=== PATIENT | female | born 1990 | race African-American/Black ===

== ENCOUNTER 2017-06-30 01:42 | Inpatient (IN) | payer OTHER ==
[2017-06-30] MEDS ORDERED: Metoclopramide HCl 10 MG/2 ML VIAL ONE (02:25)
[2017-06-30] MEDS ORDERED: Insulin Regular 100 units/100 ml in NS IVPB SCH (03:00)
[2017-06-30 03:02] LABS: Base Excess-Venous -2.7 mmol/L (-30.0-30.0); Bicarbonate (HCO3v) 21.1 mmol/L (1.0-85.0); CO2 Tension (PvCO2) 32.1 mmHg (41.0-51.0); Calcium, Ionized 0.98 mmol/L (1.12-1.32); Hemoglobin - Calc 10.6 g/dL (12.0-18.0); O2 Tension (PvO2) 57.1 mmHg (35.0-45.0); Potassium 4.1 mmol/L (3.4-4.7); T. Carbon Dioxide 22.1 mmol/L (1.0-85.0); pH (Venous) 7.425 (7.35-7.45); vO2 Saturation-calc 90.3 % (0.0-100.0)
[2017-06-30 03:16] LABS: #Lymphocytes 2.2 thou/uL (1.20-3.40); #Monocytes 1.3 thou/uL (0.11-0.59); #Neutrophils 12.4 thou/uL (1.40-6.50); %Basophils 0.1 % (0.0-1.0); %Eosinophils 0.2 % (0.0-10.0); %Neutrophils 77.8 % (42.0-75.0); Hemoglobin 9.6 g/dL (12.0-16.0); Mean Corpuscular HGB CONC 31.3 g/dL (32.0-36.0); Mean Corpuscular Volume 92.4 fl (81.0-99.0); Mean Platelet Volume 9.1 fL (7.4-10.4); Platelet Count 414 thou/uL (130-400); RBC Distribution Width 12.9 % (11.5-14.5); Red Blood Cell (RBC) Count 3.32 mill/uL (4.20-5.40); White Blood Cell (WBC) Count 15.9 thou/uL (4.8-10.8)
[2017-06-30 03:30] LABS: ALT (SGPT) 29 U/L (8-55); AST (SGOT) 25 U/L (5-34); Albumin 3.1 g/dL (3.5-5.0); Alkaline Phosphatase 251 U/L (40-150); Anion Gap 21 mmol/L (10-20); BUN (Urea Nitrogen) 22 mg/dL (7.0-18.7); Bilirubin, Total Less than 0.2 mg/dL (0.2-1.2); Calc. Creatinine Clearance 0 mL/min (70-130); Calcium 8.8 mg/dL (7.8-10.44); Carbon Dioxide 19 mmol/L (22-29); Chloride 102 mmol/L (98-107); Estimated GFR-MDRD 34; Globulin 4.2 g/dL (2.4-3.5); Glucose 345 mg/dL (70-105); Potassium 4.2 mmol/L (3.5-5.1); Protein, Total 7.3 g/dL (6.0-8.3); Sodium 138 mmol/L (136-145)
--- NOTE | 2017-06-30 04:49 | HP ---
DATE OF ADMISSION: 06/30/2017 TIME OF SERVICE: 0400 hours. CHIEF COMPLAINT: DKA. HISTORY OF PRESENT ILLNESS: Ms. Bower is a 26-year-old -[place] female with history of diab etes mellitus type 1 with prior episodes of DKA, hypertension, headaches, and asthma, who presented t o an outside emergency department in [place] after 3-4 days with abdominal pain, nausea, and vomit ing. In the emergency department, she was found to have a glucose of 822, bicarbonate was 8. Beta hydroxy butyrate was 12 and potassium was 4.6. White count was elevated. Her lactic acid was 2.5 and she wa s found to have a pH of 7.2. She was started on insulin drip for DKA and transferred here for ICU be d. On arrival here, pH was 7.4. Anion gap was down to 21 from 33 and her bicarbonate had almost normali zed. Gap was almost closed. We were subsequently called for admit. The patient continues to have abdominal pain. She describes as crampy kind in the epigastric region. No known exacerbating or alleviating factors. She has not had any diarrhea. The vomitus has been green. She denies any GI bleeding above or below. No other current complaints. She denies fever, chills, chest pain, or shortness of breath. PAST MEDICAL HISTORY: 1. Diabetes mellitus type 1. 2. Hypertension. 3. Headaches. 4. Asthma. PAST SURGICAL HISTORY: None. HOME MEDICATIONS: 1. Lisinopril 10 mg daily. 2. Lantus 10 units subcutaneously q.a.m. 3. NovoLog sliding scale for meals and correction. ALLERGIES: NKDA. FAMILY HISTORY: Negative for clotting or bleeding disorder, no immune dysfunction. SOCIAL HISTORY: Negative for habits x3. REVIEW OF SYSTEMS: A 10-point review of systems was performed and negative for all systems except as per HPI. PHYSICAL EXAMINATION: VITAL SIGNS: Temperature 98.9, pulse 103, blood pressure 156/100, respiratory rate 19, satting 100% on room air. GENERAL: She is awake. She is alert. She is oriented x3. She is a well-developed, well-nourished -[place] female, appears to be in moderate distress, discomfort. HEENT: Normocephalic, atraumatic. Her pupils equal and reactive to light bilaterally, mucous membra shea are moist. She has no visible lesion or thrush. NECK: Supple. She has no lymphadenopathy, no JVD, no thyromegaly. She has normal carotid upstrokes . There are no bruits. LUNGS: Clear. She has good air movement and symmetrical chest excursion. No wheezes, no rales, or rhonchi. No prolonged expiratory phase. CARDIOVASCULAR: She is tachycardic, regular. Normal S1 and S2. No S3 or S4. No murmurs. ABDOMEN: Has hypoactive bowel sounds in all 4 quadrants. She is minimally tender to the epigastric region. There is no rebound, rigidity, or guarding. EXTREMITIES: Show no cyanosis, no clubbing, no edema. SKIN: Warm, moist, well perfused. She has no rashes, no lesions. MUSCULOSKELETAL: Normal to inspection. The large joints are uninflamed. There is no palpable effus ions. NEUROLOGIC: Cranial nerves II through XII are grossly intact, speech is normal, strength is 5/5, she has no focal deficits. LABORATORY DATA: Sodium 138, potassium 4.2, chloride 102, bicarbonate 19, BUN 22, creatinine 1.82, u nknown baseline. Calcium 8.8. Liver functions are normal except for an alkaline phosphatase of 251. CBC showed a white count of 15 .9 with increased granulocytes, hemoglobin 9.6, hematocrit 30.7, platelet count is 414,000. VBG show ed pH 7.43, pCO2 of 32, pO2 of 57, and bicarbonate of 21. Lactic acid initially 2.5 in [place] an d 3.6 here. RADIOGRAPHIC STUDIES: She has had CT scan of the abdomen and pelvis without contrast did not see any acute abnormalities. We will send the radiologist for evaluation. There is no mention in the notes . ASSESSMENT AND PLAN: 1. Diabetic ketoacidosis, resolving. Her gap was almost closed. Her sugars were down. She is on i nsulin drip at 4 units per hour. We will continue transfer to the intermediate care unit to resume t he protocol. 2. Diabetes mellitus type 1, insulin-dependent. We will switch over to Lantus when she is ready to eat. 3. Chronic headaches, none currently. 4. Asthma without acute exacerbation. 5. Probable acute kidney injury. Her creatinine is 1.82 with an unknown baseline. Likely secondary to dehydration. 6. Severe sepsis. Tachycardic, increased white blood cell count, possible bowel infection, evidence of end organ damage with increased lactate and increased creatinine. She does meet severe sepsis cr iteria. She will be in the intermediate care unit, would hold off on antibiotics at the present.
[2017-06-30 07:07] LABS: Lactic Acid 3.4 mmol/L (0.5-2.2)
[2017-06-30] MEDS ORDERED: NS 0.9% w/ 20 MEQ KCL 1,000 ML IV PRN ×2 (07:48)
[2017-06-30] MEDS ORDERED: Dextrose 5 %-0.45 % NaCl 1,000 ML IV PRN (07:48)
[2017-06-30] MEDS ORDERED: CCU Electrolyte Replacement 1 EACH IVPB SCH (07:48)
[2017-06-30] MEDS ORDERED: Sodium Chloride 0.9% 1,000 ML IV PRN ×4 (07:48)
[2017-06-30] MEDS ORDERED: Bisacodyl 10 MG SUPP PR PRN (07:48)
[2017-06-30] MEDS ORDERED: Insulin Regular (Human) 100 UNITS, Admixture Fee 1 EACH in Sodium Chloride 0.9% 100 ML IVPB SCH (07:48)
[2017-06-30] MEDS ORDERED: Potassium Chloride 40 MEQ in Sodium Chloride 0.9% 250 ML 250 ML IVPB PRN (07:54)
[2017-06-30] MEDS ORDERED: Magnesium 2 GM/NS 0.9% 100 ML 2 GM in Premix Bag 1 BAG IVPB PRN (07:54)
[2017-06-30] MEDS ORDERED: Potassium Chloride 40 MEQ in Premix Bag 1 BAG IVPB PRN (07:54)
[2017-06-30] MEDS ORDERED: CCU ELECTROLYTE REPLACEMENT PROTOCOL FS PRN (07:54)
[2017-06-30] MEDS ORDERED: Magnesium Oxide 400 MG TAB PO PRN ×2 (07:54)
[2017-06-30] MEDS ORDERED: Potassium Phosphate 12 MMOL in Sodium Chloride 0.9% 250 ML 250 ML IV PRN (07:54)
[2017-06-30] MEDS ORDERED: Potassium Chloride 20 MEQ TAB PO PRN (07:54)
[2017-06-30] MEDS ORDERED: Potassium Phosphate 15 MMOL in Sodium Chloride 0.9% 250 ML 250 ML IV PRN (07:54)
[2017-06-30] MEDS ORDERED: Potassium Phosphate 9 MMOL in Sodium Chloride 0.9% 100 ML IVPB PRN (07:54)
[2017-06-30 08:11] VITALS: BMI 22.6
[2017-06-30] MEDS: D5 1/2 NS w/20 mEq KCL 1,000 ML IV PRN ×2 (08:30→12:38)
[2017-06-30 08:40] LABS: Anion Gap 15 mmol/L (10-20); BUN (Urea Nitrogen) 19 mg/dL (7.0-18.7); Calc. Creatinine Clearance 39 mL/min (70-130); Calcium 8.4 mg/dL (7.8-10.44); Carbon Dioxide 23 mmol/L (22-29); Chloride 108 mmol/L (98-107); Estimated GFR-MDRD 46; Glucose 110 mg/dL (70-105); Potassium 4.1 mmol/L (3.5-5.1); Sodium 142 mmol/L (136-145)
[2017-06-30] MEDS: Famotidine/PF 20 mg/2ml Vial SLOW IVP SCH ×2 (08:51→20:25)
[2017-06-30] MEDS: Promethazine HCl 25 MG/ML VIAL IM/IV PRN ×2 (08:51→17:26)
[2017-06-30 12:30] LABS: Anion Gap 13 mmol/L (10-20); BUN (Urea Nitrogen) 17 mg/dL (7.0-18.7); Calc. Creatinine Clearance 39 mL/min (70-130); Calcium 8.2 mg/dL (7.8-10.44); Carbon Dioxide 24 mmol/L (22-29); Chloride 107 mmol/L (98-107); Estimated GFR-MDRD 45; Glucose 211 mg/dL (70-105); Potassium 4.3 mmol/L (3.5-5.1); Sodium 140 mmol/L (136-145)
--- NOTE | 2017-06-30 14:04 | PDOC.PN ---
- Subjective Encounter Start Date: 06/30/17 Encounter Start Time: 15:00 CC: DKA Sub; pt denies any complaints - Objective Resuscitation Status: Resuscitation Status FULL:Full Resuscitation Vital Signs & Weight: Vital Signs (12 hours) Temp Pulse Resp BP Pulse Ox 06/30/17 11:49 98.4 F 100 20 167/99 H 98 06/30/17 07:48 98.2 F 99 24 H 148/99 H 96 Weight Weight 104 lb 14.4 oz Result Diagrams: 06/30/17 02:58 06/30/17 12:09 Additional Labs: Accuchecks 06/30/17 06/30/17 06/30/17 13:50 13:10 12:34 POC Glucose 220 H 200 H 202 H 06/30/17 06/30/17 06/30/17 10:59 10:36 08:49 POC Glucose 201 H 187 H 142 H 06/30/17 06/30/17 06/30/17 08:07 07:45 04:59 POC Glucose 71 77 181 H Phys Exam - Physical Examination Constitutional: NAD HEENT: moist MMs Neck: no JVD Respiratory: no wheezing, no rales, no rhonchi Cardiovascular: RRR, no significant murmur, no rub Gastrointestinal: soft, non-tender, no distention Musculoskeletal: no edema Neurological: non-focal Psychiatric: normal affect Skin: no rash, normal turgor Dx/Plan - Plan * . Pt is 26 yrs old female now admitted to hospital due to DKA 1. DKA 2. Nausea and vomiting 3. DM type 1 4. HTN 5. Asthma plan: blood sugars improved ANion gap resolved. will dc insulin drip Will give NPH 6 units subq x1 now will start lantus 10 units daily. PRN antiemetics case d/w pt & RN
[2017-06-30] MEDS ORDERED: NPH, Human Insulin Isophane 300 UNIT/3 ML VIAL SC SCH (15:15)
[2017-06-30 17:29] LABS: Anion Gap 15 mmol/L (10-20); BUN (Urea Nitrogen) 13 mg/dL (7.0-18.7); Calc. Creatinine Clearance 43 mL/min (70-130); Calcium 8.1 mg/dL (7.8-10.44); Carbon Dioxide 21 mmol/L (22-29); Chloride 107 mmol/L (98-107); Estimated GFR-MDRD 51; Glucose 194 mg/dL (70-105); Potassium 4.5 mmol/L (3.5-5.1); Sodium 138 mmol/L (136-145)
[2017-07-01] MEDS ORDERED: Dextrose 5% in Water 1,000 ML IV PRN (00:31)
[2017-07-01] MEDS ORDERED: HumaLOG 300 UNITS/3 ML VIAL SC PRN (00:31)
[2017-07-01] MEDS ORDERED: Dextrose 50% Abboject 50 ML SYRINGE IVP PRN (00:31)
[2017-07-01] MEDS: Promethazine HCl 25 MG/ML VIAL IM/IV PRN ×2 (04:39→09:37)
[2017-07-01 04:56] LABS: Anion Gap 17 mmol/L (10-20); BUN (Urea Nitrogen) 11 mg/dL (7.0-18.7); Calc. Creatinine Clearance 42 mL/min (70-130); Calcium 8.9 mg/dL (7.8-10.44); Carbon Dioxide 22 mmol/L (22-29); Chloride 104 mmol/L (98-107); Estimated GFR-MDRD 50; Glucose 226 mg/dL (70-105); Potassium 4.5 mmol/L (3.5-5.1); Sodium 138 mmol/L (136-145)
[2017-07-01] MEDS: Famotidine/PF 20 mg/2ml Vial SLOW IVP SCH (07:44)
[2017-07-01] MEDS ORDERED: Non-Formulary Item 1 EACH (Insulin Glargine,Hum.Rec.Anlog [Lantus] 10 UNITS) SQ SCH (09:00)
--- NOTE | 2017-07-01 12:05 | PDOC.PN ---
- Subjective Encounter Start Date: 07/01/17 Encounter Start Time: 11:55 Subjective: f/u DKA off Insulin gtt with apparent resolution. Nsg reports pt c/ o abd -: pain that is persistent with N/V on Phenergan. - Objective Resuscitation Status: Resuscitation Status FULL:Full Resuscitation MAR Reviewed: Yes Vital Signs & Weight: Vital Signs (12 hours) Temp Pulse Resp BP BP Pulse Ox 07/01/17 07:33 98.0 F 92 13 98 07/01/17 07:32 98.0 F 92 13 102/65 100 07/01/17 04:30 98.4 F 101 H 16 106/63 100 Weight Weight 104 lb 14.4 oz I&O: 06/30/17 07/01/17 07/02/17 06:59 06:59 06:59 Intake Total 3370 Output Total 2300 Balance 1070 Result Diagrams: 06/30/17 02:58 07/01/17 03:35 Additional Labs: Accuchecks 07/01/17 07/01/17 07/01/17 08:23 04:35 00:09 POC Glucose 166 H 177 H 326 H 06/30/17 06/30/17 06/30/17 20:14 18:32 16:17 POC Glucose 257 H 184 H 205 H 06/30/17 06/30/17 06/30/17 15:23 13:50 13:10 POC Glucose 184 H 220 H 200 H 06/30/17 12:34 POC Glucose 202 H Laboratory Tests 06/30/17 06/30/17 06/30/17 02:35 02:58 06:43 Creatinine Lactic Acid 3.6 H 3.4 H B-Hydroxybutyrate 3.77 H 06/30/17 06/30/17 06/30/17 08:11 08:11 12:08 Creatinine 1.64 H Lactic Acid B-Hydroxybutyrate 0.45 H 0.31 H 06/30/17 06/30/17 12:09 17:07 Creatinine 1.67 H 1.50 H Lactic Acid B-Hydroxybutyrate EKG Reviewed by me: Yes (Tele - sinus tachycardia) Phys Exam - Physical Examination Constitutional: NAD HEENT: PERRLA, oral pharynx no lesions Neck: no JVD, supple Respiratory: no wheezing, clear to auscultation bilateral tachycardic bowel sounds diminished but present Gastrointestinal: soft, non-tender, no distention, positive bowel sounds Musculoskeletal: no edema, pulses present Neurological: normal sensation, moves all 4 limbs Psychiatric: A&O x 3 Skin: normal turgor, cap refill <2 seconds Dx/Plan (1) DKA (diabetic ketoacidosis) Code(s): E13.10 - OTH DIABETES MELLITUS WITH KETOACIDOSIS WITHOUT COMA Status : Acute Qualifiers: Diabetes mellitus type: type 1 Comment: resume D5NS at 150ml/h due to returning of symptoms, repeat CMP and monitor for clinical decompensation (2) Nausea & vomiting Code(s): R11.2 - NAUSEA WITH VOMITING, UNSPECIFIED Status: Acute Comment: Trial Reglan 10mg IV q6h, Phenergan prn, IVF's (3) Abdominal pain Code(s): R10.9 - UNSPECIFIED ABDOMINAL PAIN Status: Acute Qualifiers: Abdominal location: generalized Qualified Code(s): R10.84 - Generalized abdominal pain Comment: Suspect gastroparesis, Trial of Reglan (4) DM I (diabetes mellitus, type I), uncontrolled Code(s): E10.65 - TYPE 1 DIABETES MELLITUS WITH HYPERGLYCEMIA Status: Chronic Comment: See mgmt above, consider dietitian evaluation, start Levemir 10 sc daily - Plan hospital social worker, DVT proph w/SCDs Continue supportive mgmt -: Resume IVF's due to poor po intake -: Trial Reglan 10mg IV q6h -: Dulcolax supp daily prn -: AM lab: CMP, CBC * .
[2017-07-01] MEDS: Dextrose 5 % And 0.9 % NaCl 1,000 ML IV SCH ×2 (12:13→17:49)
[2017-07-01] MEDS: Metoclopramide HCl 10 MG/2 ML VIAL IVP SCH ×2 (12:16→17:50)
[2017-07-01] MEDS: Insulin Detemir 100 UNITS/ML 10 UNITS in Pre-Filled Syringe SC SCH ×2 (12:16→12:21)
--- NOTE | 2017-07-01 13:11 | PQF ---
STACIE PérezDESHAWN DO [id number] [facility]- B01 [id number] CLINICAL DOCUMENTATION IMPROVEMENT CLARIFICATION FORM: ICD-10 Updated PLEASE DO AN ADDENDUM TO THE PROGRESS NOTE WITH ANY DOCUMENTATION UPDATES OR ADDITIONS AND CARRY THROUGH TO DC SUMMARY. THANK YOU. DATE: 07-01-17 ATTN: DR. ALDANA Please exercise your independent, professional judgment in responding to the clarification form. Clinical indicators are provided on the bottom of this form for your review Please check appropriate box(s) to clarify if the following diagnosis has been ruled in our ruled out: SEPSIS [ ] Ruled in diagnosis [ ] Continue to treat [ ] Resolved [ ] Ruled out diagnosis [ ] Cannot rule out diagnosis [ ] Other diagnosis [ x ] Unable to determine For continuity of documentation, please document condition throughout progress notes and discharge summary. Thank You. CLINICAL INDICATORS - SIGNS / SYMPTOMS / LABS ER: PULSE 106 - 117 BP 168/104 TO 109/68 H&P: SEVERE SEPSIS TACHYCARDIC, INCREASED WBC, POSSIBLE BOWEL INFECTION, EVIDENCE OF END ORGAN DAMAGE W/ INCREASED LACTATE AND INCREASED CREATININE. MEETS SEVERE SEPSIS CRITERIA. 2-20 WBC 15.9 LACTIC ACID 3.6 BUN 22 CREAT 1.82 GFR 34 - / 2- PULSE 94 - 102 2-20 RESP 24 RISK FACTORS 2-21 PN GASTROPARESIS - SUSPECT TREATMENTS H&P: INTERMEDIATE CARE UNIT WILL HOLD OFF ON ABX AT THE PRESENT PULM CONSULT MAR: D5NS 06-30 / 07-01 THANK YOU, SARAH (This form is maintained as a part of the permanent medical record) 2014 [employer]. All Rights Reserved Sarah Toledo RN, BS [email or web address] [facility] CENTERShanthi
[2017-07-01] MEDS: HumaLOG 300 UNITS/3 ML VIAL SC PRN ×2 (18:08→20:19)
[2017-07-02] MEDS: Metoclopramide HCl 10 MG/2 ML VIAL IVP SCH ×4 (00:25→17:50)
[2017-07-02 04:40] LABS: ALT (SGPT) 19 U/L (8-55); AST (SGOT) 26 U/L (5-34); Albumin 2.7 g/dL (3.5-5.0); Alkaline Phosphatase 226 U/L (40-150); Anion Gap 11 mmol/L (10-20); BUN (Urea Nitrogen) 8 mg/dL (7.0-18.7); Bilirubin, Total Less than 0.2 mg/dL (0.2-1.2); Calc. Creatinine Clearance 53 mL/min (70-130); Calcium 8.5 mg/dL (7.8-10.44); Carbon Dioxide 28 mmol/L (22-29); Chloride 105 mmol/L (98-107); Estimated GFR-MDRD 64; Globulin 3.9 g/dL (2.4-3.5); Potassium 3.8 mmol/L (3.5-5.1); Protein, Total 6.6 g/dL (6.0-8.3); Sodium 140 mmol/L (136-145)
[2017-07-02 04:42] LABS: Glucose 51 mg/dL (70-105)
[2017-07-02 05:16] LABS: Band 1 % (5-11); Hemoglobin 9.7 g/dL (12.0-16.0); Hypochromia SLIGHT = 6-15 cells (100X) (0-5/hpf); Lymphocytes 13 % (21-51); MDiff Complete? YES; Mean Corpuscular HGB CONC 31.9 g/dL (32.0-36.0); Mean Corpuscular Hemoglobin 30.4 pg (27.0-31.0); Mean Corpuscular Volume 95.4 fl (81.0-99.0); Mean Platelet Volume 9.2 fL (7.4-10.4); Monocytes 9 % (0-10); Neutrophil 77 % (42-75); Nucleated RBC 1 % (0); PLT Morphology Comment Appears Adequate; Platelet Count 361 thou/uL (130-400); Red Blood Cell (RBC) Count 3.17 mill/uL (4.20-5.40); White Blood Cell (WBC) Count 11.6 thou/uL (4.8-10.8)
[2017-07-02] MEDS: Dextrose 5 % And 0.9 % NaCl 1,000 ML IV SCH ×2 (06:01→19:45)
[2017-07-02] MEDS: Insulin Detemir 100 UNITS/ML 10 UNITS in Pre-Filled Syringe SC SCH (08:31)
[2017-07-02] MEDS: Famotidine 20 MG TAB PO SCH (08:31)
--- NOTE | 2017-07-02 15:00 | PDOC.PN ---
- Subjective Encounter Start Date: 07/02/17 Encounter Start Time: 14:50 Subjective: f/u for DKA on current IVF's and not taking consistent po. c/o abd pain -: but no emesis. Some abd pain that has moved further down in midline. -: Voiding without difficulty but no BM x 48h. - Objective Resuscitation Status: Resuscitation Status FULL:Full Resuscitation MAR Reviewed: Yes Vital Signs & Weight: Vital Signs (12 hours) Temp Pulse Resp BP BP Pulse Ox 07/02/17 13:58 93 18 136/93 H 95 07/02/17 07:33 98.6 F 94 14 95 07/02/17 07:04 98.6 F 94 14 128/76 95 07/02/17 04:00 98.6 F 109 H 16 161/94 H 97 Weight Weight 104 lb 14.4 oz I&O: 07/01/17 07/02/17 07/03/17 06:59 06:59 06:59 Intake Total 3370 2664 Output Total 2300 2470 Balance 1070 194 Result Diagrams: 07/02/17 03:30 07/02/17 03:30 Additional Labs: Accuchecks 07/02/17 07/02/17 07/02/17 11:18 05:52 00:04 POC Glucose 159 H 108 64 L 07/01/17 07/01/17 20:07 16:33 POC Glucose 269 H 401 H Laboratory Tests 06/30/17 06/30/17 06/30/17 02:35 02:58 02:58 WBC 15.9 H Hgb 9.6 L Creatinine Lactic Acid Alkaline Phosphatase 251 H B-Hydroxybutyrate 3.77 H 06/30/17 06/30/17 06/30/17 02:58 06:43 08:11 WBC Hgb Creatinine 1.64 H Lactic Acid 3.6 H 3.4 H Alkaline Phosphatase B-Hydroxybutyrate 06/30/17 06/30/17 06/30/17 08:11 12:08 12:09 WBC Hgb Creatinine 1.67 H Lactic Acid Alkaline Phosphatase B-Hydroxybutyrate 0.45 H 0.31 H 06/30/17 07/01/17 17:07 03:35 WBC Hgb Creatinine 1.50 H 1.52 H Lactic Acid Alkaline Phosphatase B-Hydroxybutyrate EKG Reviewed by me: Yes (Tele - SR) Phys Exam - Physical Examination Constitutional: NAD smiles HEENT: PERRLA, oral pharynx no lesions Neck: no JVD, supple Respiratory: no wheezing, clear to auscultation bilateral Cardiovascular: RRR Gastrointestinal: soft, non-tender, no distention, positive bowel sounds LUE edema Musculoskeletal: pulses present Neurological: normal sensation, moves all 4 limbs Psychiatric: A&O x 3 Skin: normal turgor, cap refill <2 seconds Dx/Plan (1) DKA (diabetic ketoacidosis) Code(s): E13.10 - OTH DIABETES MELLITUS WITH KETOACIDOSIS WITHOUT COMA Status : Acute Qualifiers: Diabetes mellitus type: type 1 Comment: D5NS at 75ml/h due to returning of symptoms, repeat CMP, overall improved and acidosis resolved (2) Nausea & vomiting Code(s): R11.2 - NAUSEA WITH VOMITING, UNSPECIFIED Status: Acute Comment: Trial Reglan 10mg IV q6h, Phenergan prn, IVF's, improved overall, advance diet (3) Abdominal pain Code(s): R10.9 - UNSPECIFIED ABDOMINAL PAIN Status: Acute Qualifiers: Abdominal location: generalized Qualified Code(s): R10.84 - Generalized abdominal pain Comment: Suspect gastroparesis, Trial of Reglan, OOB and ambulate, supportive mgmt (4) DM I (diabetes mellitus, type I), uncontrolled Code(s): E10.65 - TYPE 1 DIABETES MELLITUS WITH HYPERGLYCEMIA Status: Chronic Comment: See mgmt above, consider dietitian evaluation, start Levemir 10 sc daily - Plan out of bed/ambulate, DVT proph w/SCDs Stable overall -: Continue IVF's another 24h -: Clear liquids as tolerated -: Continue Levemir 10u sc daily -: Continue Reglan * AM lab: CMP, CBC * Transfer to [facility]
[2017-07-02] MEDS ORDERED: Morphine 5 MG/ML SYRINGE SLOW IVP PRN (23:48)
[2017-07-03] MEDS: cloNIDine 0.1 MG TAB PO PRN ×2 (00:29→12:25)
[2017-07-03] MEDS: Metoclopramide HCl 10 MG/2 ML VIAL IVP SCH ×5 (02:12→23:35)
[2017-07-03 05:34] LABS: Band 1 % (5-11); Hemoglobin 8.7 g/dL (12.0-16.0); Lymphocytes 16 % (21-51); MDiff Complete? YES; Mean Corpuscular HGB CONC 31.2 g/dL (32.0-36.0); Mean Corpuscular Hemoglobin 29.8 pg (27.0-31.0); Mean Corpuscular Volume 95.7 fl (81.0-99.0); Mean Platelet Volume 8.7 fL (7.4-10.4); Metamyelocyte 1 % (0-0); Monocytes 3 % (0-10); Neutrophil 78 % (42-75); PLT Morphology Comment Appears Adequate; Platelet Count 275 thou/uL (130-400); RBC Distribution Width 12.7 % (11.5-14.5); White Blood Cell (WBC) Count 9.7 thou/uL (4.8-10.8)
[2017-07-03 05:44] LABS: ALT (SGPT) 12 U/L (8-55); AST (SGOT) 37 U/L (5-34); Albumin 2.4 g/dL (3.5-5.0); Alkaline Phosphatase 361 U/L (40-150); Anion Gap 8 mmol/L (10-20); BUN (Urea Nitrogen) 6 mg/dL (7.0-18.7); Bilirubin, Total 0.2 mg/dL (0.2-1.2); Calc. Creatinine Clearance 54 mL/min (70-130); Calcium 8.1 mg/dL (7.8-10.44); Carbon Dioxide 29 mmol/L (22-29); Chloride 103 mmol/L (98-107); Estimated GFR-MDRD 67; Globulin 3.8 g/dL (2.4-3.5); Glucose 152 mg/dL (70-105); Potassium 3.7 mmol/L (3.5-5.1); Protein, Total 6.2 g/dL (6.0-8.3); Sodium 136 mmol/L (136-145)
[2017-07-03] MEDS: Famotidine 20 MG TAB PO SCH (09:12)
[2017-07-03] MEDS: Insulin Detemir 100 UNITS/ML 10 UNITS in Pre-Filled Syringe SC SCH (09:13)
--- NOTE | 2017-07-03 12:05 | PDOC.PN ---
- Subjective Encounter Start Date: 07/03/17 Encounter Start Time: 11:50 Subjective: f/u s/p DKA now with fever documented over last 12h. Denies any -: localizing sx. No cough, SOB. No N/V. No BM x 3 days. No dysuria. -: Tolerating po intake. - Objective Resuscitation Status: Resuscitation Status FULL:Full Resuscitation MAR Reviewed: Yes Vital Signs & Weight: Vital Signs (12 hours) Temp Pulse Resp BP BP BP Pulse Ox 07/03/17 11:42 100.5 F H 99 20 178/111 H 07/03/17 08:48 99.9 F H 84 20 143/88 H 97 07/03/17 08:00 101.0 F H 101 H 20 07/03/17 03:30 101.0 F H 101 H 20 126/77 96 07/03/17 00:29 206/119 H 07/03/17 00:05 100.6 F H 108 H 20 206/119 H 99 Weight Weight 104 lb 14.4 oz Tmax 101F I&O: 07/02/17 07/03/17 07/04/17 06:59 06:59 06:59 Intake Total 2664 2720 Output Total 2470 1000 Balance 194 1720 Result Diagrams: 07/03/17 05:10 07/03/17 05:10 Additional Labs: Accuchecks 07/03/17 07/03/17 07/02/17 06:31 02:24 20:57 POC Glucose 145 H 129 H 139 H 07/02/17 16:59 POC Glucose 116 H Laboratory Tests 06/30/17 06/30/17 06/30/17 02:35 02:58 02:58 WBC 15.9 H Hgb 9.6 L Creatinine Lactic Acid Alkaline Phosphatase 251 H B-Hydroxybutyrate 3.77 H 06/30/17 06/30/17 06/30/17 02:58 06:43 08:11 WBC Hgb Creatinine 1.64 H Lactic Acid 3.6 H 3.4 H Alkaline Phosphatase B-Hydroxybutyrate 06/30/17 06/30/17 06/30/17 08:11 12:08 12:09 WBC Hgb Creatinine 1.67 H Lactic Acid Alkaline Phosphatase B-Hydroxybutyrate 0.45 H 0.31 H 02/20/18 02/21/18 17:07 03:35 WBC Hgb Creatinine 1.50 H 1.52 H Lactic Acid Alkaline Phosphatase B-Hydroxybutyrate Phys Exam - Physical Examination Constitutional: NAD smiles, alert HEENT: PERRLA, oral pharynx no lesions Neck: no JVD, supple Respiratory: no wheezing, clear to auscultation bilateral Cardiovascular: RRR Gastrointestinal: soft, non-tender, no distention, positive bowel sounds Musculoskeletal: no edema, pulses present Neurological: normal sensation, moves all 4 limbs Psychiatric: A&O x 3 Skin: normal turgor, cap refill <2 seconds Dx/Plan (1) DKA (diabetic ketoacidosis) Code(s): E13.10 - OTH DIABETES MELLITUS WITH KETOACIDOSIS WITHOUT COMA Status : Acute Qualifiers: Diabetes mellitus type: type 1 Comment: Resolved (2) Nausea & vomiting Code(s): R11.2 - NAUSEA WITH VOMITING, UNSPECIFIED Status: Acute Comment: Improved overall, advance diet (3) Abdominal pain Code(s): R10.9 - UNSPECIFIED ABDOMINAL PAIN Status: Acute Qualifiers: Abdominal location: generalized Qualified Code(s): R10.84 - Generalized abdominal pain Comment: Suspect gastroparesis, Trial of Reglan, OOB and ambulate, supportive mgmt (4) DM I (diabetes mellitus, type I), uncontrolled Code(s): E10.65 - TYPE 1 DIABETES MELLITUS WITH HYPERGLYCEMIA Status: Chronic Comment: See mgmt above, consider dietitian evaluation, start Levemir 10 sc daily (5) Fever Code(s): R50.9 - FEVER, UNSPECIFIED Status: Acute Comment: ? etiology, no focal or localizing sx, observe trend over next 24h, ? viral syndrome - Plan psych social worker, out of bed/ambulate, DVT proph w/SCDs Stable overall -: Saline lock IVF -: OOB/ambulate -: Senokot-S BID -: Likely home in am * .
[2017-07-03] MEDS ORDERED: Senokot S 8.6-50 MG TAB PO SCH (12:15)
[2017-07-03] MEDS: Dextrose 5 % And 0.9 % NaCl 1,000 ML IV SCH (12:26)
[2017-07-03] MEDS ORDERED: Lisinopril 20 MG TAB PO SCH (17:45)
[2017-07-03] MEDS: Senokot S 8.6-50 MG TAB PO SCH (20:51)
[2017-07-04] MEDS: Metoclopramide HCl 10 MG/2 ML VIAL IVP SCH ×2 (05:25→12:46)
[2017-07-04] MEDS: Famotidine 20 MG TAB PO SCH (08:37)
[2017-07-04] MEDS: Senokot S 8.6-50 MG TAB PO SCH (08:37)
[2017-07-04] MEDS: cloNIDine 0.1 MG TAB PO PRN (08:38)
[2017-07-04] MEDS ORDERED: Lisinopril 20 MG TAB PO SCH (09:00)
[2017-07-04] MEDS: Insulin Detemir 100 UNITS/ML 10 UNITS in Pre-Filled Syringe SC SCH (09:56)
[2017-07-04 12:54] VITALS: BP 158/98; TEMP 97.9
--- NOTE | 2017-07-04 17:35 | DIS ---
DATE OF ADMISSION: 06/30/2017 DATE OF DISCHARGE: 07/04/2017 DISCHARGE DIAGNOSES: 1. Diabetic ketoacidosis, resolved. 2. Nausea and vomiting secondary to #1, resolved. 3. Abdominal pain, generalized, resolved. 4. Febrile episode, etiology unclear. 5. Diabetes mellitus, type 1, improved. CONSULTATIONS: None. PERTINENT LABORATORY DATA AND X-RAY FINDINGS: Creatinine ranged between 1.19-1.82 with estimated GFR ranged between 34-67, lactic acid level ranged between 3.4-3.6. Alkaline phosphatase ranged between 251-361. Albumin 3.1. CBC showed a white blood cell count ranged between 9.7-15.9. Hemoglobin ran ged between 8.7-9.7, beta hydroxybutyrate level ranged between 0.31-3.77. HOSPITAL COURSE: The patient was admitted to the intermediate care unit after presenting with diabet ic ketoacidosis with initial blood sugars greater than 800 and bicarbonate level of 8. The patient w as placed on DKA protocol with insulin infusion and aggressive IV fluid hydration. The patient karen nued on DKA protocol for approximately 48 hours, improving with beta hydroxybutyrate level, resolving with treatment as outlined previously. The patient was noted with mild acute kidney injury, improvi ng with IV fluid hydration and supportive measures. The patient transitioned to the medical floor, c ontinuing on IV fluids and advancing diet as tolerated. The patient was noted with intermittent feve r elevation from 99.8-101.1. No specific localizing process was identified; however, the patient was placed on empiric Omnicef 300 mg b.i.d. The patient was cautioned regarding the ongoing fever and t o seek medical attention if symptoms worsen or glucose is labile. Overall, the patient remained clin ically stable and ready for discharge on 07/04/2017. DISCHARGE MEDICATIONS: 1. Omnicef 300 mg 1 tab p.o. b.i.d. x5 days. 2. Glargine insulin 10 units subcutaneously daily. 3. Novolin R subcutaneously t.i.d. with meals. 4. Lisinopril 20 mg 1 tab p.o. daily. FOLLOWUP: The patient will follow up with her primary care provider, Dr. Fouzia Romero in [place], [place] within 7 days of discharge. CONDITION ON DISCHARGE: Stable. ACTIVITY: Ad carlyn. DIET: ADA. CODE STATUS: FULL. DISPOSITION: Home on 07/04/2017.
== END 2017-07-04 14:25 | disposition home or self-care (01) | DRG 871 ==
LOC: ERS 01:42 → IMCU/EMU 03:50 → 3SE 07-02 23:35
PROVIDERS: ADMIT Internal Medicine Infectious Disease; ATTEND Internal Medicine Infectious Disease
DX: A41.9 Sepsis, unspecified organism (principal); E10.10 Type 1 diabetes mellitus with ketoacidosis without coma; N17.9 Acute kidney failure, unspecified; R65.20 Severe sepsis without septic shock; E10.65 Type 1 diabetes mellitus with hyperglycemia; R50.9 Fever, unspecified; R11.2 Nausea with vomiting, unspecified; R10.9 Unspecified abdominal pain; I10 Essential (primary) hypertension; J45.909 Unspecified asthma, uncomplicated; Z79.4 Long term (current) use of insulin; E86.0 Dehydration
CPT/HCPCS: 36415; 36416; 80048; 80053; 82010; 82330; 82803; 83605; 85007; 85025; 85027; 96365; 96366; 96368; J2270; A4216; J1815; J2765; J7050